=== PATIENT | male | born 1990 | race Two or more races ===

== ENCOUNTER 2018-02-05 10:23 | Emergency (ER) | payer OTHER, SELFPAY ==
[2018-02-05 10:25] VITALS: BP 130/84; PULSE 72; RESP 16; TEMP 36.5; O2SAT 96; BMI 22.4
--- NOTE | 2018-02-05 10:38 | ED.DCSUM_ITS ---
- ER Visit Summary Date of Service: 02/05/18 Chief Complaint: Itching eyes, nose running, facial pain History of Present Illness: The patient is a 27 M to the emergency department with approximately 10 days of allergic rhinitis. Patient states that he has had the symptoms with slight nasal drainage. He states that over the past few days, his eyes began to itch and water. It does seem to be worse when he goes outside. He states he has never really had anything like this before. The patient is a foreign exchange student. He does not smoke. He denies any history of other allergies. He states he did take one Claritin with little improvement. He said not had cough or shortness of breath. He denies any fevers or chills. Physical Examination: Vital signs reviewed General: Well-nourished, well-developed Head: Normocephalic, atraumatic Eyes: Pupils equal and reactive, extraocular muscles intact injection of the conjunctiva without purulent drainage Neck, supple, no lymphadenopathy Heart: Regular rate and rhythm Respiratory: No distress, clear bilaterally Abdomen: Soft, nontender, nondistended, no peritoneal signs Back: Nontender Extremities: Nontender, no edema, no cords Skin: Normal color no rash Neuro: Alert and oriented, no focal or lateralizing deficits Test Results: [] Emergency Department Course and Treatment: Patient symptoms do seem consistent with allergic rhinitis. He has had symptoms for 10 days with continued symptoms. I am going to place him on prednisone burst. Is given his first dose here. He will continue Claritin. At this time, I do for the patient is safe for discharge. Treatment Plan: [] Disposition: Discharge Impression:. Allergic rhinitis This note was generated with [employer] dictation software. It may contain incorrect words, spelling, and punctuation that were not noted in review of the chart prior to signing ED Disposition - Plan for ED Patient: Chief Complaint: Other, Pain/Inj Instructions: ED Allergy Seasonal Prescriptions: Prednisone 10 mg PO DAILY #63 tab
[2018-02-05] MEDS: predniSONE 20 MG Tablet 60 MG PO (10:44)
== END 2018-02-05 11:08 | disposition home or self-care (01) ==
LOC: ED 10:59
PROVIDERS: Emergency Provider Emergency Medicine
DX: J30.9 Allergic rhinitis, unspecified (principal)
CPT/HCPCS: 99283